=== PATIENT | male | born 1945 | race Caucasian/White ===

== ENCOUNTER → 2017-02-09 | Outpatient (CLI) | payer OTHER ==
[~2017-02-09] MED LIST: ADVIL200 M1 PO; ALLOPURINOL300 MG PO; COLCHICINE0.6 M1 PO; GLUCOSAMINE500 M2 PO; KETOCONAZOLE120 ML TOP; LOPRESSOR PO; PERCOCET5/325 PO; SIMVASTATIN40 MG PO; TRIAMTERENE-HC1 EACH PO; XARELTO10 MG PO
--- NOTE | ~2017-02-09 | EKG ---
PATIENT: EAN RODRIGUEZ UNIT #: [id number] Ventricular Rate: 59 BPM Atrial Rate: 59 BPM P-R Interval: 168 ms QRS Duration: 98 ms Q-T Interval: 416 ms QTC Calculation(Bezet): 411 ms P [place]: 24 degrees Calculated R [place]: -15 degrees Calculated T [place]: 7 degrees Diagnosis Line: Sinus bradycardia Diagnosis Line: Minimal voltage criteria for LVH, may be normal Diagnosis Line: variant Diagnosis Line: Borderline ECG Diagnosis Line: No previous ECGs available Diagnosis Line: Confirmed by ALINE TAVARES MD ([id number]) on Diagnosis Line: 02/10/2017 10:53:20 AM INTERPRETING MD: TONY
[2017-02-09 10:55] LABS: BUN/CREATININE RATIO 16.66; CALCIUM SERUM 9.4 mg/dL (8.4-10.2); CREATININE SERUM 0.9 mg/dL (0.6-1.4); GLOM FILT RATE Estimated 86.8 mL/min (>60); POTASSIUM 3.7 mmol/L (3.5-5.1)
== END | disposition home or self-care (01) ==
LOC: CAMB 08:59
PROVIDERS: Orthopaedic Surgery
DX: Z01.818 Encounter for other preprocedural examination (principal); M10.9 Gout, unspecified; M19.071 Primary osteoarthritis, right ankle and foot; M85.661 Other cyst of bone, right lower leg; R00.1 Bradycardia, unspecified
CPT/HCPCS: 36415; 80048; 93005

== ENCOUNTER 2017-02-23 10:56 | Inpatient (IN) | payer OTHER ==
--- NOTE | ~2017-02-23 | OR ---
Unit #: [id number] #: [id number] Patient: EAN RODRIGUEZ [id number] [address] [place], [place] [address] [id number] MR#: [id number] NAME: EAN RODRIGUEZ. ROOM: [facility] Date of Procedure: 02/23/2017 Admission Date: 02/23/2017 Surgeon: Ericka Chaduhari M.D. : 1945 Attending Physician: Ericka Chaudhari M.D. Primary Care Physician: Ericka Chaudhari M.D. OPERATIVE REPORT PREOPERATIVE DIAGNOSES 1. Right subtalar joint degenerative arthritis. 2. Right distal tibial and medial talar body cysts. 3. Suspected right ankle and subtalar joint gout. POSTOPERATIVE DIAGNOSES 1. Right subtalar joint degenerative arthritis. 2. 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 3. Right ankle and subtalar joint tumor. PROCEDURES PERFORMED 1. Right ankle arthrotomy with excision of tumor from anteromedial and lateral ankle joint. 2. Right subtalar joint fusion (72312). 3. Right distal tibial bone tumor curettage. 4. Right talar body bone tumor curettage and bone grafting. 5. Right proximal tibial bone graft ([id number]). ASSISTANTS Mary Hager Vessel. ANESTHESIA Popliteal saphenous block and general. INDICATIONS FOR SURGERY The patient is a 71-year-old male with right hindfoot pain and ankle swelling and pain for several months duration. X-rays show arthritis of the subtalar joint with a large cyst in the distal tibia medially. The MRI documents large cyst in the medial distal tibia as well as the posteromedial talar body and end-stage arthritis of the subtalar joint. This is suspected to be gout related, since the patient does have a history of gout. The patient has failed conservative care and is therefore to undergo subtalar fusion with bone grafting of these suspected tophaceous cysts. DESCRIPTION OF PROCEDURE The patient was taken to the operating room following popliteal saphenous block. He was placed in supine position. General endotracheal anesthesia was induced. The right leg was identified as the correct operative extremity during the time-out procedure. The IV antibiotic protocol was followed. The right foot was then prepped and draped in usual sterile fashion. The leg was exsanguinated and the thigh tourniquet was inflated Unit #: [id number] #: [id number] Patient: EAN RODRIGUEZ to 300 mmHg. An anterior longitudinal incision was made over the ankle joint measuring 10 cm. Subcutaneous tissue was divided. The superficial peroneal nerve was identified and preserved. The extensor retinaculum was opened. The interval between the extensor hallucis longus and tibialis anterior tendons was developed and the neurovascular bundle was retracted laterally. The joint capsule was opened and there was a large amount of yellowish montes tumor within the ankle joint capsule as well as infiltrating into the medial and lateral gutters. This was excised sharply and also rongeurs were utilized. 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 A 1 cm cortical window was made in the anteromedial distal tibia and a large cyst measuring 2 x 3 cm was entered in the distal tibia. Additional tannish yellow material was obtained deep in the cyst. This was curetted. Aerobic and anaerobic cultures were taken from the ankle joint as well as from the distal tibial cyst. The material from the distal tibia was sent for pathologic examination. A 5 cm anterolateral curvilinear incision was made over the proximal tibia. The subcutaneous tissue was divided. The extensor fascia was opened. The lateral tibial cortex was exposed subperiosteally. A 1 x 2 cm cortical window was made and a large amount of cancellous bone graft was harvested from the proximal tibia. This was then packed into the tibial cyst. A 6 cm incision was then made over the sinus tarsi longitudinally. The subcutaneous tissue was divided. The sinus tarsi was opened and again more yellowish montes tumor was found within the sinus tarsi. This was sharply excised and sent to Pathology for examination. The contents of the sinus tarsi were then excised. The joint was exposed and distracted with a laminar risk engineer. The power osteotome, curved curettes, and rongeurs were utilized to remove the articular cartilage from both sides of the subtalar joint addressing all three facets. The underlying subchondral bone was feathered with the power osteotome. The power osteotome was then used to open the posteromedial cortex underlying the suspected cyst in the posteromedial talar body and the cyst was entered. The cyst wall was then curetted and the cyst was packed with autogenous bone graft taken from the proximal tibia. Additional bone graft was then packed into the subtalar joint. The joint was then positioned appropriately and fixated with an OrthoHelix 7.0 mm diameter cannulated screw placed from the posterior inferior calcaneus into the talar neck. Excellent fixation was achieved. Additional cancellous bone chips (allograft) were then packed into the distal tibial cyst and impacted with an impactor. The cortical window was replaced. The remainder of the allograft bone chips were then backfilled into the proximal tibial bone graft donor site and the cortical window was replaced. The extensor fascia was closed with 2-0 Vicryl [id number] sutures. The ankle joint capsule was closed with 2-0 Vicryl. The extensor retinaculum was closed with 2-0 Vicryl. Subcutaneous tissue was closed with 3-0 Vicryl. The skin was closed with interrupted 3-0 nylon horizontal mattress sutures. Xeroform gauze, dressing, sponges, Webril, and a posterior fiberglass splint were applied. The patient was then transported to the recovery room in stable condition. Unit #: [id number] #: [id number] Patient: EAN RODRIGUEZ ESTIMATED BLOOD LOSS Minimal. COMPLICATIONS None. SPECIMENS 1. Right ankle joint capsule. 2. Right distal tibial bone cyst. 3. Right ankle joint capsule. 4. Right distal tibial tumor. 5. Right subtalar joint tumor. Dictated by.Fernando Arriaga/tim TD: 02/24/2017 17:33 JOB #: [id number] OPERATIVE REPORT Page 1 of 1 X Vicki Chaudhari MD X PROCEDURE OPERATIVE NOTE
--- NOTE | ~2017-02-23 | HP ---
Unit #: [id number] #: [id number] Patient: EAN RODRIGUEZ [id number] [address] [place], [place] [address] [id number] MR#: [id number] NAME: EAN RODRIGUEZ. ROOM: Age: 71 Sex: M Admission Date: 02/23/2017 : 1945 Attending Physician: Ericka Chaudhari M.D. HISTORY AND PHYSICAL CHIEF COMPLAINT Right foot and ankle pain. HISTORY OF PRESENT ILLNESS This 71-year-old male has a long history of chronic right ankle and foot pain. He complains of pain with walking and standing. He has failed to respond to conservative care. He was previously treated at the [facility]. An MRI of the right ankle performed one year ago shows a 2 x 3 cm cyst in the distal medial tibia, as well as an 11 x 20 mm cyst in the medial talus. He has endstage arthritis of the subtalar joint with subchondral cyst formation and has apparent debris in the anterior and posterior aspect of the subtalar joint, consistent with probable gout. The patient does have a long history of recurrent gouty attacks and currently takes allopurinol. Standing x-rays of the right ankle show mild narrowing of the superior medial tibiotalar joint space. There is a large subchondral cyst affecting the medial 25% of the distal tibia and medial malleolus and there are erosive changes in the medial talus. There does not appear to be breakthrough of the cyst into the joint space. On the lateral view there is significant joint space narrowing of the subtalar joint, indicating significant arthritis. The patient is admitted for surgical intervention. I think his ankle joint is relatively well maintained and I do not recommend fusion. Rather, I think we can get by with an ankle joint debridement through a straight anterior approach with removal of tophaceous material and bone grafting of the distal medical tibial and medial talar cysts. He will also require subtalar fusion through a sinus tarsi approach. We will utilize proximal tibial bone graft for grafting of the subtalar joint as well as for grafting of the cystic areas. PAST MEDICAL HISTORY 1. Gout. 2. Hyper uricemia. 3. Benign prostatic hypertrophy. 4. Chronic obstructive pulmonary disease. 5. Hypercholesterolemia. 6. Hypertension. PAST SURGICAL HISTORY Left ulnar wrist surgery. SOCIAL HISTORY The patient is a former smoker. He does not smoke now. He denies excessive use of alcohol. He is retired. He is and lives in [place], [place]. Unit #: [id number] #: [id number] Patient: EAN RODRIGUEZ FAMILY HISTORY Unremarkable. ALLERGIES No known drug allergies. HOME MEDICATIONS 1. Allopurinol. 2. HCTZ. 3. Triamterene. 4. Metformin. 5. Simvastatin. REVIEW OF SYSTEMS Otherwise unremarkable. PHYSICAL EXAMINATION GENERAL: This is an obese male in no acute distress. VITALS: Height 5'8", weight 225 pounds. HEENT: Pharynx is clear. NECK: Supple without masses. LUNGS: Clear. CHEST: HEART: Regular sinus rhythm without murmurs or gallops. ABDOMEN: Soft and nontender without masses or organomegaly. EXTREMITIES: Evaluation of the right foot shows normal arch. The heel is neutral. He has significant swelling of the ankle and hindfoot. Right ankle dorsiflexion is 0 degrees, plantar flexion 30 degrees. Subtalar motion is absent. First MTP joint (1) 50 degrees, plantar flexion 10 disease. Pulses are intact. Sensation is normal. Motor examination is normal. The patient is not tender over the anterior ankle joint, but has pain over the sinus tarsi and over the lateral aspect of the subtalar joint. DIAGNOSTIC STUDIES IMAGING: Standing x-rays of the right ankle showed mild narrowing of the superior medial ankle joint space. There is a subchondral cyst affecting the medial 25% of the distal tibia and medial malleolus with erosive changes in the medical talus. Subtalar joint arthritis is noted with standing x-rays. MRI documents a 2 x 3 cm cyst in the distal medial tibia and an 11 x 20 mm diameter cyst in the medial talus. ADMITTING DIAGNOSES 1. Right subtalar joint arthritis secondary to gout. 2. Right ankle gouty arthropathy with erosive changes in the distal tibia and distal medial malleolus. PLAN The patient has failed conservative care. He is, therefore, admitted for surgical intervention. This will entail open right ankle joint debridement through a straight anterior approach with removal of tophaceous material and bone grafting of the distal medial tibial and talar medial body. He will also require subtalar fusion through a sinus tarsi approach. Proximal tibial bone Unit #: [id number] #: [id number] Patient: EAN RODRIGUEZ graft will be utilized for grafting of the cyst as well as for grafting of the subtalar joint effusion site. The procedure was described along with the risks of bleeding, infection, nerve damage, need for further surgery in the future, nonunion, malunion, prolonged recovery time, deep venous thrombosis, pulmonary embolism and anesthetic complications. The main complication of further surgery may be the need for ankle joint fusion if he experiences collapse of the distal tibia over time. The patient understands the above risks and agrees to proceed. Dictated by Ericka Chaudhari M.D. RTH/gz TD: 02/22/2017 14:13 JOB #: [id number] CC: Ericka Chaudhari M.D. HISTORY AND PHYSICAL Page 1 of 1 X Vicki Chaudhari MD X HISTORY AND PHYSICAL
[~2017-02-23 10:56] MED LIST changes: -PERCOCET5/325 PO; -XARELTO10 MG PO
[2017-02-24 03:00] LABS: HEMATOCRIT 41.4 % (38.0-50.0); HEMOGLOBIN 13.5 gm/dL (13.0-16.0)
[2017-02-24] MEDS ORDERED: XARELTO10 MG PO (13:38)
[2017-02-24] MEDS ORDERED: PERCOCET5/325 PO (13:38)
== END 2017-02-24 14:33 | disposition home or self-care (01) | DRG 479 ==
LOC: CSUR 10:56 → CPACUOF 12:10 → CSUR 12:10 → CPACUOF 17:25 → C4B 18:42 → CPACUOF 18:42 → C4B 18:42
PROVIDERS: Orthopaedic Surgery
PROC: 0QUG07Z Supplement Right Tibia with Autologous Tissue Substitute, Open Approach (ICD-10-PCS; 2017-02-23)
PROC: 0SGH07Z Fusion of Right Tarsal Joint with Autologous Tissue Substitute, Open Approach (ICD-10-PCS; principal; 2017-02-23 14:00)
PROC: 0QBL0ZX Excision of Right Tarsal, Open Approach, Diagnostic (ICD-10-PCS; 2017-02-23 14:00)
PROC: 0QBG0ZZ Excision of Right Tibia, Open Approach (ICD-10-PCS; 2017-02-23 14:00)
PROC: 0QBG0ZX Excision of Right Tibia, Open Approach, Diagnostic (ICD-10-PCS; 2017-02-23 14:00)
DX: M10.071 Idiopathic gout, right ankle and foot (principal); J44.9 Chronic obstructive pulmonary disease, unspecified; I10 Essential (primary) hypertension; N40.0 Benign prostatic hyperplasia without lower urinary tract symptoms; M10.9 Gout, unspecified; E78.00 Pure hypercholesterolemia, unspecified; Z87.891 Personal history of nicotine dependence; Z79.84 Long term (current) use of oral hypoglycemic drugs; M19.071 Primary osteoarthritis, right ankle and foot
CPT/HCPCS: 85014; 85018; 87070; 87075; 87205; 88305; 88311; 94010; 94760; 97116; 97161; 97530; C1713; G8978-GP; G8979-GP; G8980-GP; J0330; J0690; J2250; J2270; J2405; J2795; J3010